=== PATIENT | male | born 1985 | race Hispanic/Latino ===

== ENCOUNTER 2018-08-14 08:19 | Emergency (ER) | payer BC, OTHER ==
[2018-08-14] MEDS ORDERED: TRAMADOL HCL 50 MG TAB ONE (08:50)
--- NOTE | 2018-08-14 08:58 | RAD REPORT ---
EXAM DESCRIPTION: RAD - Foot Right 3 View - 08/14/2018 8:53 am CLINICAL HISTORY: PAIN Trauma COMPARISON: No comparisons FINDINGS: Soft tissue swelling is seen affecting the great toe. No acute fracture or dislocation shayne ntified.
--- NOTE | 2018-08-14 09:23 | EDPHYS ---
Physician Documentation [facility] Name: Thai Lyle Jr Age: 33 yrs Sex: Male : 1985 Arrival Date: 08/14/2018 Time: 08:22 Bed 13 Private MD: None, None ED Physician Niko Hidalgo HPI: 08/14 09:14 This 33 yrs old Male presents to ER via Ambulatory with complaints of Right pm1 Great Toe Injury. 09:14 Onset: The symptoms/episode began/occurred this morning. The patient presents with pm1 pain. The complaints affect the right first toe. Context: The problem was sustained at home, resulted from the patient kicking, a wall, the patient can fully bear weight, the patient is able to ambulate, with mild difficulty. Modifying factors: The symptoms are alleviated by rest the symptoms are aggravated by weight bearing. Associated signs and symptoms: Pertinent negatives: calf tenderness, numbness, tingling. The patient has not experienced similar symptoms in the past. The patient has not recently seen a physician. Historical: - Allergies: 08:28 Prednisone; aa5 - PMHx: 08:28 Back pain; bulging disc; Kidney stones; aa5 - PSHx: 08:28 Vasectomy; aa5 - Immunization history:: Flu vaccine is not up to date. - Social history:: Smoking status: Patient uses tobacco products, smokes one-half pack cigarettes per day. - Ebola Screening: : No symptoms or risks identified at this time. ROS: 09:14 MS/extremity: Positive for pain, of the right first toe, Negative for deformity. pm1 09:14 Constitutional: Negative for fever, chills, and weight loss, Eyes: Negative for injury, pain, redness, and discharge, ENT: Negative for injury, pain, and discharge, Neck: Negative for injury, pain, and swelling, Cardiovascular: Negative for chest pain, palpitations, and edema, Respiratory: Negative for shortness of breath, cough, wheezing, and pleuritic chest pain, Abdomen/GI: Negative for abdominal pain, nausea, vomiting, diarrhea, and constipation, Back: Negative for injury and pain, Skin: Negative for injury, rash, and discoloration, Neuro: Negative for headache, weakness, numbness, tingling, and seizure. Exam: 09:14 Constitutional: This is a well developed, well nourished patient who is awake, alert, pm1 and in no acute distress. Head/Face: Normocephalic, atraumatic. Chest/axilla: Normal chest wall appearance and motion. Nontender with no deformity. No lesions are appreciated. Cardiovascular: Regular rate and rhythm with a normal S1 and S2. No gallops, murmurs, or rubs. Normal PMI, no JVD. No pulse deficits. Respiratory: Lungs have equal breath sounds bilaterally, clear to auscultation and percussion. No rales, rhonchi or wheezes noted. No increased work of breathing, no retractions or nasal flaring. Back: No spinal tenderness. No costovertebral tenderness. Full range of motion. Skin: Warm, dry with normal turgor. Normal color with no rashes, no lesions, and no evidence of cellulitis. 09:14 Musculoskeletal/extremity: Extremities: grossly normal except: noted in the right first toe: tenderness, trace swelling to right great toe, There is no evidence of decreased ROM, deformity, ecchymosis. Vital Signs: 08:28 BP 129 / 80; Pulse 65; Resp 18 S; Temp 97.1(TE); Pulse Ox 100% on R/A; Weight 83.91 kg aa5 (R); Height 5 ft. 9 in. (175.26 cm) (R); Pain 8/10; 08:28 Body Mass Index 27.32 (83.91 kg, 175.26 cm) aa5 MDM: 08:29 Patient medically screened. pm1 09:21 Data reviewed: vital signs. Data interpreted: Pulse oximetry: on room air is 100 %. pm1 Interpretation: normal. Counseling: I had a detailed discussion with the patient and/or guardian regarding: the historical points, exam findings, and any diagnostic results supporting the discharge/admit diagnosis, radiology results, the need for outpatient follow up, to return to the emergency department if symptoms worsen or persist or if there are any questions or concerns that arise at home. 08/14 08:29 Order name: Foot Right 3 View XRAY; Complete Time: 09:05 pm1 08/14 09:30 Order name: Post-op shoe; Complete Time: 09:52 pm1 Administered Medications: 08:37 Not Given (Physician Discretion): Paradise 10 mg-325 mg 1 tabs PO once pm1 08:51 Drug: traMADol 50 mg Route: PO; jl7 09:30 Follow up: Response: No adverse reaction; Pain is decreased jl7 Disposition: 14:14 Co-signature as Attending Physician, Niko Hidalgo MD I agree with the assessment and leoncio plan of care. Disposition: 08/14/18 09:23 Discharged to Home. Impression: Unspecified sprain of right great toe. - Condition is Stable. - Discharge Instructions: Foot Contusion, Foot Sprain. - Prescriptions for Tylenol- Codeine #3 300-30 mg Oral Tablet - take 2 tablets by ORAL route every 6 hours As needed; 20 tablet. Diclofenac Sodium 75 mg Oral Tablet Sustained Release - take 1 tablet by ORAL route 2 times per day; 30 tablet. - Medication Reconciliation Form, Thank You Letter, Prescription Opioid Use, Work release form form. - Follow up: Emergency Department; When: As needed; Reason: Worsening of condition. Follow up: Private Physician; When: 2 - 3 days; Reason: Recheck today's complaints, Continuance of care, Re-evaluation by your physician. Follow up: Mark Martinez DPM; When: 5 - 6 days; Reason: Recheck today's complaints, Continuance of care, Re-evaluation by your physician. - Problem is new. - Symptoms have improved. Signatures: Dispatcher [employer] EDMS Niko Hidalgo MD MD cha Calderon, Audri, RN RN aa5 Anjel Bentley, NORMA DISTRIBUTION TECH pm1 Augusto Bailey RN RN jl7 Corrections: (The following items were deleted from the chart) 09:56 09:23 08/14/2018 09:23 Discharged to Home. Impression: Unspecified sprain of right jl7 great toe. Condition is Stable. Forms are Medication Reconciliation Form, Thank You Letter, Antibiotic Education, Prescription Opioid Use. Follow up: Emergency Department; When: As needed; Reason: Worsening of condition. Follow up: Private Physician; When: 2 - 3 days; Reason: Recheck today's complaints, Continuance of care, Re-evaluation by your physician. Follow up: Dr. Mark Martinez; When: 5 - 6 days; Reason: Recheck today's complaints, Continuance of care, Re-evaluation by your physician. Problem is new. Symptoms have improved. pm1
--- NOTE | 2018-08-14 09:23 | ER ---
Nurse's Notes [facility] Name: Thai Lyle Jr Age: 33 yrs Sex: Male : 1985 Arrival Date: 08/14/2018 Time: 08:22 Bed 13 Private MD: None, None Diagnosis: Unspecified sprain of right great toe Presentation: 08/14 08:27 Presenting complaint: Patient states: "I kicked a wall this morning". Pt c/o pain to aa5 right great toe. Transition of care: patient was not received from another setting of care. Onset of symptoms was August 14, 2018. Risk Assessment: Do you want to hurt yourself or someone else? Patient reports no desire to harm self or others. Initial Sepsis Screen: Does the patient meet any 2 criteria? No. Patient's initial sepsis screen is negative. Does the patient have a suspected source of infection? No. Patient's initial sepsis screen is negative. Care prior to arrival: None. 08:27 Method Of Arrival: Ambulatory aa5 08:27 Acuity: MURIEL 4 aa5 Historical: - Allergies: 08:28 Prednisone; aa5 - PMHx: 08:28 Back pain; bulging disc; Kidney stones; aa5 - PSHx: 08:28 Vasectomy; aa5 - Immunization history:: Flu vaccine is not up to date. - Social history:: Smoking status: Patient uses tobacco products, smokes one-half pack cigarettes per day. - Ebola Screening: : No symptoms or risks identified at this time. Screenin:34 Abuse screen: Denies threats or abuse. Denies injuries from another. Nutritional jl7 screening: No deficits noted. Tuberculosis screening: No symptoms or risk factors identified. Fall Risk None identified. Assessment: 08:34 General: Appears in no apparent distress. uncomfortable, Behavior is calm, cooperative, jl7 appropriate for age. Pain: Complains of pain in right first toe Pain currently is 8 out of 10 on a pain scale. Is continuous. Neuro: Level of Consciousness is awake, alert, obeys commands, Oriented to person, place, time, situation. Cardiovascular: Patient's skin is warm and dry. Respiratory: Airway is patent Respiratory effort is even, unlabored, Respiratory pattern is regular, symmetrical. Derm: Skin is pink, warm \\T\\ dry. Musculoskeletal: Range of motion: intact in all extremities. 09:30 Reassessment: Patient appears in no apparent distress at this time. Patient and/or jl7 family updated on plan of care and expected duration. Pain level reassessed. Patient is alert, oriented x 3, equal unlabored respirations, skin warm/dry/pink. Vital Signs: 08:28 BP 129 / 80; Pulse 65; Resp 18 S; Temp 97.1(TE); Pulse Ox 100% on R/A; Weight 83.91 kg aa5 (R); Height 5 ft. 9 in. (175.26 cm) (R); Pain 8/10; 08:28 Body Mass Index 27.32 (83.91 kg, 175.26 cm) aa5 ED Course: 08:22 Patient arrived in ED. mr 08:22 None, None is Private Physician. mr 08:27 Triage completed. aa5 08:27 Arm band placed on. aa5 08:29 Anjel Bentley, NORMA is PHCP. pm1 08:29 Niko Hidalgo MD is Attending Physician. pm1 08:29 Augusto Bailey RN is Primary Nurse. jl7 08:34 Patient has correct armband on for positive identification. Bed in low position. Call jl7 light in reach. Side rails up X 1. Pulse ox on. NIBP on. 08:52 X-ray completed. Portable x-ray completed in exam room. Patient tolerated procedure jb2 well. 08:54 Foot Right 3 View XRAY In Process Unspecified. EDMS 09:22 Mark Martinez DPM is Referral Physician. pm1 09:54 No provider procedures requiring assistance completed. Patient did not have IV access jl7 during this emergency room visit. Administered Medications: 08:37 Not Given (Physician Discretion): Dameron 10 mg-325 mg 1 tabs PO once pm1 08:51 Drug: traMADol 50 mg Route: PO; jl7 09:30 Follow up: Response: No adverse reaction; Pain is decreased jl7 Outcome: 09:23 Discharge ordered by . pm1 09:54 Discharged to home ambulatory, with family. jl7 09:54 Condition: stable 09:54 Discharge instructions given to patient, family, Instructed on discharge instructions, follow up and referral plans. medication usage, Demonstrated understanding of instructions, follow-up care, medications, Prescriptions given X 2. 09:56 Patient left the ED. jl7 Signatures: Dispatcher [employer] ALEX SalasPepper mr CarinaThomas jb2 Lizbeth Alas, RN RN aa5 Anjel Bentley, NORMA [employer]ORER pm1 Augusto Bailey RN RN jl7
== END 2018-08-14 09:56 | disposition home or self-care (01) ==
LOC: ER 08:19
DX: S93.501A Unspecified sprain of right great toe, initial encounter (principal); W22.8XXA Striking against or struck by other objects, initial encounter; Y93.89 Activity, other specified; Y92.009 Unspecified place in unspecified non-institutional (private) residence as the place of occurrence of the external cause; Z88.8 Allergy status to other drugs, medicaments and biological substances; F17.210 Nicotine dependence, cigarettes, uncomplicated
CPT/HCPCS: 99284

== ENCOUNTER 2019-01-04 22:33 | Emergency (ER) | payer BC ==
[2019-01-04 23:26] LABS: Absolute Lymphocytes (CBC) 2.6 K/uL (0.7-4.9); Basophils % 2.2 % (0-1.3); Eosinophils % 5.3 % (0-4.4); Lymphocytes % 35.2 % (15.3-44.8); MPV 9.8 fL (7.6-11.3); Monocytes % 6.7 % (3.3-12.3); RBC Red Blood Cell Count 4.74 M/uL (4.33-5.43)
[2019-01-04 23:29] LABS: Protime INR 0.99
[2019-01-04] MEDS ORDERED: FAMOTIDINE 20 MG/2 ML VIAL IV ONE (23:35)
[2019-01-04] MEDS ORDERED: NA CHLORIDE 0.9% 1,000 ML ONE (23:35)
[2019-01-04 23:43] LABS: ALT/SGPT 20 U/L (12-78); AST/SGOT 11 U/L (15-37); Albumin 3.6 g/dL (3.4-5.0); Alkaline Phosphatase 101 U/L (45-117); BUN Blood Urea Nitrogen 14 mg/dL (7-18); Bicarbonate 29 mmol/L (21-32); Bilirubin Direct < 0.1 mg/dL (0-0.2); Bilirubin Total 0.2 mg/dL (0.2-1.0); Glucose Level 96 mg/dL (74-106); Lipase 400 U/L (73-393); Magnesium 2.2 mg/dL (1.8-2.4); NT PRO-BNP 113 pg/mL (<125); Potassium 3.7 mmol/L (3.5-5.1); Protein, Total 6.7 g/dL (6.4-8.2); Sodium Level 140 mmol/L (136-145); Troponin (Emerg Dept Use Only) < 0.02 ng/mL (0.0-0.045)
[2019-01-04 23:52] LABS: Urine Blood NEGATIVE (NEG); Urine Glucose NEGATIVE (NEG); Urine Protein TRACE (NEG); Urine Specific Gravity 1.025 (1.005-1.030)
[2019-01-05] MEDS ORDERED: NA CHLORIDE 0.9% 1,000 ML ONE (00:49)
--- NOTE | 2019-01-05 01:47 | ER ---
Nurse's Notes [facility] Name: Thai Lyle Jr Age: 33 yrs Sex: Male : 1985 Arrival Date: 01/04/2019 Time: 22:36 Bed 8 Private MD: Diagnosis: Chest pain, unspecified;Abdominal tenderness Presentation: 01/04 22:56 Presenting complaint: Patient states: LUQ pain for several days. Was seen at [facility] and aa1 was discharged and told to f/u with GI and has appt with Dr. Savage 01/18 but states the pain is not getting any better. Transition of care: patient was not received from another setting of care. Onset of symptoms was January 01, 2019. Risk Assessment: Do you want to hurt yourself or someone else? Patient reports no desire to harm self or others. Initial Sepsis Screen: Does the patient meet any 2 criteria? No. Patient's initial sepsis screen is negative. Does the patient have a suspected source of infection? Yes: Acute abdominal pain. Care prior to arrival: None. 22:56 Method Of Arrival: Ambulatory aa1 22:56 Acuity: MURIEL 3 aa1 Triage Assessment: 23:03 General: Appears in no apparent distress. comfortable, Behavior is calm, cooperative, aa1 appropriate for age. Historical: - Allergies: 23:03 Prednisone; aa1 - Home Meds: 23:03 None [Active]; aa1 - PMHx: 23:03 Back pain; bulging disc; Kidney stones; aa1 - PSHx: 23:03 Vasectomy; aa1 - Immunization history:: Flu vaccine is not up to date. - Social history:: Smoking status: Patient uses tobacco products, smokes one-half pack cigarettes per day. - Ebola Screening: : No symptoms or risks identified at this time. - Family history:: not pertinent. Screenin:08 Abuse screen: Denies threats or abuse. Nutritional screening: No deficits noted. tr5 Tuberculosis screening: No symptoms or risk factors identified. Fall Risk No fall in past 12 months (0 pts). No secondary diagnosis (0 pts). IV access (20 points). Ambulatory Aid- Gait- Normal/Bed Rest/Wheelchair (0 pts) Mental Status- Oriented to own ability (0 pts). Total Rangel Fall Scale indicates No Risk (0-24 pts). Assessment: 23:05 General: Appears uncomfortable, Behavior is calm, cooperative, appropriate for age. tr5 Pain: Complains of pain in abdomen Pain currently is 8 out of 10 on a pain scale. Quality of pain is described as aching, crampy, Pain began 2-3 days ago. Neuro: Level of Consciousness is awake, alert, obeys commands, Oriented to person, place, time, Superintendent Recreation are equal bilaterally Moves all extremities. Cardiovascular: Heart tones present Bruits absent Capillary refill < 3 seconds Pulses are all present. Edema is absent. Respiratory: Airway is patent Trachea midline Respiratory effort is even, unlabored, Respiratory pattern is regular, symmetrical, Breath sounds are clear bilaterally. GI: Bowel sounds present X 4 quads. Abdomen is tender to palpation in right lower quadrant and left lower quadrant Reports lower abdominal pain, bloody stool. : No signs and/or symptoms were reported regarding the genitourinary system. EENT: No signs and/or symptoms were reported regarding the EENT system. Derm: Skin is intact, Skin is dry. Musculoskeletal: Capillary refill < 3 seconds, Range of motion: intact in all extremities. 23:54 Reassessment: Patient appears in no apparent distress at this time. Patient and/or aa1 family updated on plan of care and expected duration. Pain level reassessed. Patient is alert, oriented x 3, equal unlabored respirations, skin warm/dry/pink. Awaiting lab results. 01/05 01:21 Reassessment: Patient appears in no apparent distress at this time. Patient and/or aa1 family updated on plan of care and expected duration. Pain level reassessed. Patient is alert, oriented x 3, equal unlabored respirations, skin warm/dry/pink. Awaiting provider reassessment. Vital Signs: 01/04 23:03 BP 112 / 77; Pulse 60; Resp 16; Temp 98.2; Pulse Ox 98% on R/A; Weight 79.38 kg; Height aa1 5 ft. 9 in. (175.26 cm); Pain 8/10; 23:54 BP 103 / 71; Pulse 60; Resp 16; Pulse Ox 97% on R/A; aa1 01/05 01:21 BP 97 / 65; Pulse 59; Resp 16; Pulse Ox 100% on R/A; aa1 07/18 23:03 Body Mass Index 25.84 (79.38 kg, 175.26 cm) aa1 ED Course: 01/04 22:36 Patient arrived in ED. do 22:38 Niko Hidalgo MD is Attending Physician. [facility] 23:03 Triage completed. aa1 23:03 Arm band placed on right wrist. aa1 23:05 Андрей Harmon, RN is Primary Nurse. tr5 23:08 Allergy band placed. Placed in gown. Bed in low position. Call light in reach. tr5 23:08 Inserted saline lock: 20 gauge in right antecubital area, using aseptic technique. tr5 23:35 X-ray completed. Portable x-ray completed in exam room. Patient tolerated procedure kw well. 23:40 XRAY Chest (1 view) In Process Unspecified. EDMS 01/05 01:49 CT Chest For PE Angio In Process Unspecified. EDMS 02:10 No provider procedures requiring assistance completed. IV discontinued. aa1 Administered Medications: 01/04 23:30 Drug: Pepcid 20 mg Route: IVP; Site: right antecubital; aa1 23:30 Drug: NS 0.9% 1000 ml Route: IV; Rate: 1 bolus; Site: right antecubital; aa1 01/05 00:42 Drug: NS 0.9% 1000 ml Route: IV; Rate: 1 bolus; Site: right antecubital; aa1 Outcome: 01:44 Discharge ordered by . [facility] 02:09 Condition: stable aa1 02:09 Discharge instructions given to patient, Instructed on discharge instructions, follow up and referral plans. medication usage, Prescriptions given X 3. 02:10 Discharged to home ambulatory. aa1 02:10 Patient left the ED. aa1 Signatures: Dispatcher [employer] EDMI Sonja Mitchell, RN RN aa1 Niko Hidalgo MD MD cha Whitley, Kimberlee kw Ogletree, Danielle do Rodriguez, Tommie, RN RN tr5
--- NOTE | 2019-01-05 01:49 | EDPHYS ---
Physician Documentation [facility] Name: Thai Lyle Jr Age: 33 yrs Sex: Male : 1985 Arrival Date: 01/04/2019 Time: 22:36 Bed 8 Private MD: LAINA Physician Niko Hidalgo HPI: 01/04 23:09 This 33 yrs old Male presents to ER via Ambulatory with complaints of leoncio Abdominal Pain. 23:09 The patient or guardian reports chest pain that is located primarily in the anterior leoncio chest wall, left breast. The patient presents with abdominal pain in the epigastric area, in the left upper quadrant. Onset: The symptoms/episode began/occurred 3 day(s) ago. The symptoms do not radiate. Associated signs and symptoms: none. Modifying factors: The symptoms are alleviated by nothing, the symptoms are aggravated by nothing. Historical: - Allergies: 23:03 Prednisone; aa1 - Home Meds: 23:03 None [Active]; aa1 - PMHx: 23:03 Back pain; bulging disc; Kidney stones; aa1 - PSHx: 23:03 Vasectomy; aa1 - Immunization history:: Flu vaccine is not up to date. - Social history:: Smoking status: Patient uses tobacco products, smokes one-half pack cigarettes per day. - Ebola Screening: : No symptoms or risks identified at this time. - Family history:: not pertinent. ROS: 23:09 Constitutional: Negative for fever, chills, and weight loss, Eyes: Negative for injury, leoncio pain, redness, and discharge, ENT: Negative for injury, pain, and discharge, Neck: Negative for injury, pain, and swelling, Cardiovascular: Negative for chest pain, palpitations, and edema, Respiratory: Negative for shortness of breath, cough, wheezing, and pleuritic chest pain, Back: Negative for injury and pain, : Negative for injury, bleeding, discharge, and swelling, MS/Extremity: Negative for injury and deformity, Skin: Negative for injury, rash, and discoloration, Neuro: Negative for headache, weakness, numbness, tingling, and seizure, Psych: Negative for depression, anxiety, suicide ideation, homicidal ideation, and hallucinations, Allergy/Immunology: Negative for hives, rash, and allergies, Endocrine: Negative for neck swelling, polydipsia, polyuria, polyphagia, and marked weight changes, Hematologic/Lymphatic: Negative for swollen nodes, abnormal bleeding, and unusual bruising. 23:09 Abdomen/GI: Positive for abdominal pain, of the left upper quadrant. Exam: 23:09 Constitutional: This is a well developed, well nourished patient who is awake, alert, leoncio and in no acute distress. Head/Face: Normocephalic, atraumatic. Eyes: Pupils equal round and reactive to light, extra-ocular motions intact. Lids and lashes normal. Conjunctiva and sclera are non-icteric and not injected. Cornea within normal limits. Periorbital areas with no swelling, redness, or edema. ENT: Nares patent. No nasal discharge, no septal abnormalities noted. Tympanic membranes are normal and external auditory canals are clear. Oropharynx with no redness, swelling, or masses, exudates, or evidence of obstruction, uvula midline. Mucous membranes moist. Neck: Trachea midline, no thyromegaly or masses palpated, and no cervical lymphadenopathy. Supple, full range of motion without nuchal rigidity, or vertebral point tenderness. No Meningismus. Chest/axilla: Normal chest wall appearance and motion. Nontender with no deformity. No lesions are appreciated. Cardiovascular: Regular rate and rhythm with a normal S1 and S2. No gallops, murmurs, or rubs. Normal PMI, no JVD. No pulse deficits. Respiratory: Lungs have equal breath sounds bilaterally, clear to auscultation and percussion. No rales, rhonchi or wheezes noted. No increased work of breathing, no retractions or nasal flaring. Abdomen/GI: Soft, non-tender, with normal bowel sounds. No distension or tympany. No guarding or rebound. No evidence of tenderness throughout. Back: No spinal tenderness. No costovertebral tenderness. Full range of motion. Male : Normal genitalia with no discharge or lesions. Skin: Warm, dry with normal turgor. Normal color with no rashes, no lesions, and no evidence of cellulitis. MS/ Extremity: Pulses equal, no cyanosis. Neurovascular intact. Full, normal range of motion. Neuro: Awake and alert, GCS 15, oriented to person, place, time, and situation. Cranial nerves II-XII grossly intact. Motor strength 5/5 in all extremities. Sensory grossly intact. Cerebellar exam normal. Normal gait. Psych: Awake, alert, with orientation to person, place and time. Behavior, mood, and affect are within normal limits. 23:09 Musculoskeletal/extremity: DVT Exam: No signs of deep vein thrombosis. no pain, no swelling, no tenderness, negative Homans' sign noted on exam, no appreciated bluish discoloration, no erythema, no increased warmth. Vital Signs: 23:03 BP 112 / 77; Pulse 60; Resp 16; Temp 98.2; Pulse Ox 98% on R/A; Weight 79.38 kg; Height aa1 5 ft. 9 in. (175.26 cm); Pain 8/10; 23:54 BP 103 / 71; Pulse 60; Resp 16; Pulse Ox 97% on R/A; aa1 01/05 01:21 BP 97 / 65; Pulse 59; Resp 16; Pulse Ox 100% on R/A; aa1 01/04 23:03 Body Mass Index 25.84 (79.38 kg, 175.26 cm) [facility] MDM: 01/04 22:50 Patient medically screened. [facility] 23:11 Data reviewed: vital signs, nurses notes, lab test result(s), EKG, radiologic studies, leoncio plain films. 01/04 23:09 Order name: Basic Metabolic Panel [facility] 01/04 23:09 Order name: CBC with Diff [facility] 01/04 23:09 Order name: LFT's [facility] 01/04 23:09 Order name: Magnesium [facility] 01/04 23:09 Order name: NT PRO-BNP [facility] 01/04 23:09 Order name: PT-INR; Complete Time: 00:11 [facility] 01/04 23:09 Order name: Troponin (emerg Dept Use Only); Complete Time: 00:11 [facility] 01/04 23:09 Order name: Lipase; Complete Time: 00:11 [facility] 01/04 23:09 Order name: D-Dimer; Complete Time: 00:11 [facility] 01/04 23:10 Order name: Basic Metabolic Panel; Complete Time: 00:11 [facility] 01/04 23:10 Order name: CBC with Automated Diff; Complete Time: 00:11 [facility] 01/04 23:10 Order name: Liver (Hepatic) Function; Complete Time: 00:11 [facility] 01/04 23:10 Order name: Magnesium; Complete Time: 00:11 [facility] 01/04 23:10 Order name: NT PRO-BNP; Complete Time: 00:11 [facility] 01/04 23:09 Order name: XRAY Chest (1 view) [facility] 01/04 23:09 Order name: EKG; Complete Time: 23:11 [facility] 01/04 23:09 Order name: Cardiac monitoring; Complete Time: 23:51 [facility] 01/04 23:09 Order name: EKG - Nurse/Tech; Complete Time: 23:51 [facility] 01/04 23:09 Order name: IV Saline Lock; Complete Time: 23:16 [facility] 01/04 23:09 Order name: Labs collected and sent; Complete Time: 23:16 [facility] 01/04 23:09 Order name: O2 Per Protocol; Complete Time: 23:16 [facility] 01/04 23:09 Order name: O2 Sat Monitoring; Complete Time: 23:16 [facility] 01/04 23:09 Order name: Urine Dipstick-Ancillary (obtain specimen); Complete Time: 23:38 [facility] 01/04 23:38 Order name: Urine Dipstick--Ancillary (enter results); Complete Time: 00:11 [facility] 01/05 00:12 Order name: CT Chest For PE Angio [facility] 01/05 00:14 Order name: Troponin (emerg Dept Use Only): 1245am; Complete Time: 01:47 [facility] Administered Medications: 23:30 Drug: Pepcid 20 mg Route: IVP; Site: right antecubital; [facility] 23:30 Drug: NS 0.9% 1000 ml Route: IV; Rate: 1 bolus; Site: right antecubital; aa1 01/05 00:42 Drug: NS 0.9% 1000 ml Route: IV; Rate: 1 bolus; Site: right antecubital; [facility] Disposition: 01/05/19 01:44 Discharged to Home. Impression: Chest pain, unspecified, Abdominal tenderness. - Condition is Stable. - Discharge Instructions: Abdominal Pain, Adult, Nonspecific Chest Pain, Abdominal Pain, Adult, Wsuj-[id number], Nonspecific Chest Pain, Oboc-so-Wgda, Aspirin and Your Heart. - Prescriptions for Bentyl 20 mg Oral Tablet - take 1 tablet by ORAL route every 6 hours As needed; 20 tablet. Pepcid 20 mg Oral Tablet - take 1 tablet by ORAL route every 12 hours for 10 days; 20 tablet. Tylenol- Codeine #3 300-30 mg Oral Tablet - take 2 tablets by ORAL route every 6 hours As needed; 20 tablet. - Medication Reconciliation Form, Thank You Letter, Antibiotic Education, Prescription Opioid Use form. - Follow up: Private Physician; When: 2 - 3 days; Reason: Recheck today's complaints, Continuance of care, Re-evaluation by your physician. - Problem is new. - Symptoms have improved. Signatures: Dispatcher [employer] EDMS Sonja Mitchell RN RN aa1 Niko Hidalgo MD MD cha Corrections: (The following items were deleted from the chart) 02:10 01:44 01/05/2019 01:44 Discharged to Home. Impression: Chest pain, unspecified; aa1 Abdominal tenderness. Condition is Stable. Discharge Instructions: Abdominal Pain, Adult, Nonspecific Chest Pain, Abdominal Pain, Adult, Dbkl-kd-Ldyz, Nonspecific Chest Pain, Hnbw-dx-Oixm, Aspirin and Your Heart. Prescriptions for Bentyl 20 mg Oral Tablet - take 1 tablet by ORAL route every 6 hours As needed; 20 tablet, Pepcid 20 mg Oral Tablet - take 1 tablet by ORAL route every 12 hours for 10 days; 20 tablet, Tylenol-Codeine #3 300-30 mg Oral Tablet - take 2 tablets by ORAL route every 6 hours As needed; 20 tablet. and Forms are Medication Reconciliation Form, Thank You Letter, Antibiotic Education, Prescription Opioid Use. Follow up: Private Physician; When: 2 - 3 days; Reason: Recheck today's complaints, Continuance of care, Re-evaluation by your physician. Problem is new. Symptoms have improved. leoncio
--- NOTE | 2019-01-05 07:57 | RAD REPORT ---
EXAM DESCRIPTION: Carl Single View01/04/2019 11:39 pm CLINICAL HISTORY: Cough COMPARISON: 2017 FINDINGS: The lungs appear clear of acute infiltrate. The heart is normal size IMPRESSION: No acute abnormalities displayed
--- NOTE | 2019-01-05 09:56 | RAD REPORT ---
EXAM DESCRIPTION: CT - Chest For Pe Angio - 01/05/2019 3:01 am CLINICAL HISTORY: The patient is 33 years old and is Male; CHEST PAIN TECHNIQUE: Axial computed tomographic angiography images of the chest with intravenous contrast usin g pulmonary embolism protocol. Sagittal and coronal reformatted images were created and reviewed. This CT exam was performed using one or more of the following dose reduction techniques: automated exposure control, adjustment of the mA and/or kV according to patient size, and/or use of iterative reconstruction technique. MIP reconstructed images were created and reviewed. COMPARISON: No relevant prior studies available. FINDINGS: PULMONARY ARTERIES: Unremarkable. No pulmonary embolism. AORTA: No acute findings. No thoracic aortic aneurysm. LUNGS: Unremarkable. No mass. No consolidation. PLEURAL SPACE: Unremarkable. No significant effusion. No pneumothorax. HEART: Unremarkable. No cardiomegaly. No significant pericardial effusion. No evidence of RV dysfunction. BONES/JOINTS: No acute fracture. No dislocation. SOFT TISSUES: Unremarkable. LYMPH NODES: Unremarkable. No enlarged lymph nodes. IMPRESSION: Normal chest CTA. No pulmonary embolism. Electronically signed by: Genevieve Lofton MD 01/05/2019 1:32 AM CDT Due to temporary technical issues with the PACS/Fluency reporting system, reports are being signed by the in house radiologist as a courtesy to ensure prompt reporting. The interpreting radiologist is f anthonyly responsible for the content of the report.
--- NOTE | 2019-01-05 15:38 | EKG ---
Test Date: 2019-01-04 Test Time: 23:37:07 Sap Bobj Developer: KARUNA MEASUREMENT RESULTS: Intervals: Rate: 45 DC: 126 QRSD: 104 QT: 444 QTc: 384 [place]: P: 68 DC: 126 QRS: 29 T: 47 INTERPRETIVE STATEMENTS: Sinus bradycardia ST elevation, probably due to early repolarization Borderline ECG Compared to ECG 06/20/2016 16:32:49 ST (T wave) deviation now present Early repolarization now present Sinus rhythm no longer present Electronically Signed On 01-05-19 15:35:31 CDT by Esequiel Mancuso
== END 2019-01-05 02:10 | disposition home or self-care (01) ==
LOC: ER 22:33
DX: R10.812 Left upper quadrant abdominal tenderness (principal); F17.210 Nicotine dependence, cigarettes, uncomplicated; Z88.8 Allergy status to other drugs, medicaments and biological substances
CPT/HCPCS: 36415; 71045; 71275; 80048; 80076; 81003; 83690; 83735; 83880; 84484; 85025; 85379; 85610; 93005; 96374; 99284; J7030; Q9967

== ENCOUNTER 2019-05-20 21:38 | Emergency (ER) | payer BC ==
[2019-05-20] MEDS ORDERED: AMOXICILLIN TRIHYDR 250 MG CAP ONE (22:07)
[2019-05-20] MEDS ORDERED: ONDANSETRON 4 MG (ODT) TAB ONE (22:08)
[2019-05-20] MEDS ORDERED: MORPHINE 4 MG/ML SYR ONE ×2 (22:08→22:50)
[2019-05-20 23:01] LABS: Absolute Lymphocytes (CBC) 2.6 K/uL (0.7-4.9); Basophils % 1.2 % (0-1.3); Hematocrit 44.2 % (39.6-49.0); Lymphocytes % 29.3 % (15.3-44.8); MPV 8.6 fL (7.6-11.3); RBC Red Blood Cell Count 4.96 M/uL (4.33-5.43)
[2019-05-20 23:14] LABS: BUN Blood Urea Nitrogen 13 mg/dL (7-18); Bicarbonate 30 mmol/L (21-32); Glucose Level 93 mg/dL (74-106); Potassium 3.9 mmol/L (3.5-5.1); Sodium Level 141 mmol/L (136-145)
--- NOTE | 2019-05-21 00:36 | EDPHYS ---
Physician Documentation [facility] Name: Thai Lyle Jr Age: 34 yrs Sex: Male : 1985 Arrival Date: 05/20/2019 Time: 21:39 Bed 7 Private MD: ED Physician Troy Retana HPI: 05/21 16:12 This 34 yrs old Male presents to ER via Ambulatory with complaints of Dental kdr Pain. 16:12 The patient presents with pain. The problem is located in the upper left first molar, kdr upper left second molar and upper left third molar. Onset: The symptoms/episode began/occurred suddenly, just prior to arrival. Duration: The symptoms are continuous, and are steadily getting worse. Modifying factors: The symptoms are alleviated by nothing, the symptoms are aggravated by nothing. Associated signs and symptoms: The patient has no apparent associated signs or symptoms. Severity of symptoms: At their worst the symptoms were severe, incapacitating, in the emergency department the symptoms are unchanged. The patient has experienced similar episodes in the past, a few times. The patient has not recently seen a physician. Historical: - Allergies: 05/20 21:50 Prednisone; ea - PMHx: 21:50 Kidney stones; bulging disc; Back pain; "stomach ulcers"; ea - PSHx: 21:50 Vasectomy; ea - Immunization history:: Adult Immunizations up to date. - Social history:: Smoking status: Patient uses tobacco products, smokes one-half pack cigarettes per day. - Ebola Screening: : No symptoms or risks identified at this time. ROS: 05/21 16:12 Constitutional: Negative for fever, chills, and weight loss, Eyes: Negative for injury, kdr pain, redness, and discharge, Neck: Negative for injury, pain, and swelling, Cardiovascular: Negative for chest pain, palpitations, and edema, Respiratory: Negative for shortness of breath, cough, wheezing, and pleuritic chest pain, Abdomen/GI: Negative for abdominal pain, nausea, vomiting, diarrhea, and constipation, Back: Negative for injury and pain. ENT: Positive for dental pain, of the upper left second molar and upper left third molar. Exam: 16:12 Constitutional: This is a well developed, well nourished patient who is awake, alert, kdr and in no acute distress. Head/Face: Normocephalic, atraumatic. Neck: Trachea midline, no thyromegaly or masses palpated, and no cervical lymphadenopathy. Supple, full range of motion without nuchal rigidity, or vertebral point tenderness. No Meningismus. Chest/axilla: Normal chest wall appearance and motion. Nontender with no deformity. No lesions are appreciated. 16:12 ENT: Mouth: Gums: reddened, swollen, on the upper left first molar, upper left second molar and upper left third molar, drooling, is not appreciated, Dental exam: dental caries, that is moderate, diffusely. Vital Signs: 05/20 21:49 BP 153 / 105; Pulse 65; Resp 18; Temp 97.8; Pulse Ox 100% on R/A; Weight 74.84 kg; ea Height 5 ft. 9 in. (175.26 cm); Pain 10/10; 23:40 BP 113 / 83; Pulse 61; Resp 18; Pulse Ox 96% ; ea 05/21 00:48 BP 97 / 62; Pulse 65; Resp 17; Temp 98.2; Pulse Ox 99% ; Pain 4/10; rr5 05/20 21:49 Body Mass Index 24.37 (74.84 kg, 175.26 cm) ea MDM: 00:34 Patient medically screened. kdr 16:12 Data reviewed: vital signs, nurses notes, lab test result(s). Counseling: I had a kdr detailed discussion with the patient and/or guardian regarding: the historical points, exam findings, and any diagnostic results supporting the discharge/admit diagnosis, lab results, radiology results, the need for outpatient follow up. 05/20 22:46 Order name: CBC with Diff; Complete Time: 23:46 kdr 05/20 22:46 Order name: Chem 7; Complete Time: 23:46 kdr 05/20 22:46 Order name: CT Facial Bones W/ Con \\T\\ Mpr kdr Administered Medications: 05/20 22:12 Drug: morphine 4 mg {Note: rass 0.} Route: IM; Site: right gluteus; rr5 23:31 Follow up: Response: No adverse reaction ea 22:14 Drug: Zofran 4 mg Route: PO; rr5 23:31 Follow up: Response: No adverse reaction ea 22:14 Drug: Amoxicillin 500 mg Route: PO; rr5 23:31 Follow up: Response: No adverse reaction ea 22:56 Drug: morphine 4 mg Route: IVP; Site: right antecubital; ea 23:22 Follow up: Response: No adverse reaction; Pain is decreased ea Disposition: 05/21/19 00:34 Discharged to Home. Impression: Dental pain. - Condition is Stable. - Discharge Instructions: Dental Pain, Laen-sx-Ryap. - Prescriptions for Amoxicillin 500 mg Oral Capsule - take 1 capsule by ORAL route every 8 hours for 10 days; 30 tablet. Flagyl 500 mg Oral Tablet - take 1 tablet by ORAL route every 6 hours for 10 days; 40 tablet. Tramadol 50 mg Oral Tablet - take 1 tablet by ORAL route every 8 hours as needed; 12 tablet. - Medication Reconciliation Form, Thank You Letter, Antibiotic Education, Prescription Opioid Use form. - Follow up: Private Physician; When: 2 - 3 days; Reason: If symptoms return, Further diagnostic work-up, Recheck today's complaints, Continuance of care, Re-evaluation by your physician. - Problem is new. - Symptoms have improved. Signatures: Dispatcher [employer] EDMS Troy Retana MD MD [facility] Taylor Garcia RN RN Vinay Zheng RN RN rr5 Corrections: (The following items were deleted from the chart) 05/21 00:50 00:34 05/21/2019 00:34 Discharged to Home. Impression: Dental pain. Condition is rr5 Stable. Forms are Medication Reconciliation Form, Thank You Letter, Antibiotic Education, Prescription Opioid Use. Follow up: Private Physician; When: 2 - 3 days; Reason: If symptoms return, Further diagnostic work-up, Recheck today's complaints, Continuance of care, Re-evaluation by your physician. Problem is new. Symptoms have improved. kdr
--- NOTE | 2019-05-21 00:36 | ER ---
Nurse's Notes [facility] Name: Thai Lyle Jr Age: 34 yrs Sex: Male : 1985 Arrival Date: 05/20/2019 Time: 21:39 Bed 7 Private MD: Diagnosis: Dental pain Presentation: 05/20 21:46 Presenting complaint: Patient states: Reports left side tooth pain that started about ea thirty minutes ago. Pt significant other states "he has bad teeth and has had this issue before but never this severe". Transition of care: patient was not received from another setting of care. Onset of symptoms was May 20, 2019. Risk Assessment: Do you want to hurt yourself or someone else? Patient reports no desire to harm self or others. Initial Sepsis Screen: Does the patient meet any 2 criteria? No. Patient's initial sepsis screen is negative. Does the patient have a suspected source of infection? Yes: Other: dental carries. Care prior to arrival: None. 21:46 Method Of Arrival: Ambulatory ea 21:46 Acuity: MURIEL 4 ea Historical: - Allergies: 21:50 Prednisone; ea - PMHx: 21:50 Kidney stones; bulging disc; Back pain; "stomach ulcers"; ea - PSHx: 21:50 Vasectomy; ea - Immunization history:: Adult Immunizations up to date. - Social history:: Smoking status: Patient uses tobacco products, smokes one-half pack cigarettes per day. - Ebola Screening: : No symptoms or risks identified at this time. Screenin:48 Abuse screen: Denies threats or abuse. Nutritional screening: No deficits noted. ea Tuberculosis screening: No symptoms or risk factors identified. Fall Risk None identified. Assessment: 21:51 General: Appears uncomfortable, Behavior is restless. Pain: Complains of pain in lower ea left first molar and lower left second bicuspid Pain currently is 10 out of 10 on a pain scale. Neuro: Level of Consciousness is awake, alert, obeys commands, Oriented to person, place, time, situation. Cardiovascular: Patient's skin is warm and dry. Respiratory: Airway is patent Respiratory effort is even, unlabored, Respiratory pattern is regular, symmetrical. EENT: Parent/caregiver reports the patient having pain in left jaw since 30 minutes ago Pain is 10 out of 10 on a pain scale. Derm: Skin is pink, warm \\T\\ dry. 22:50 Reassessment: Patient and/or family updated on plan of care and expected duration. Pain ea level reassessed. Pt reports pain, provider notified, ,medication order obtained, medication administered, pt tolerated well. 23:41 Reassessment: Patient and/or family updated on plan of care and expected duration. Pain ea level reassessed. Patient is alert, oriented x 3, equal unlabored respirations, skin warm/dry/pink. Returned form CT, pt reports pain decreased a little. 05/21 00:01 Reassessment: Patient and/or family updated on plan of care and expected duration. Pain ea level reassessed. Patient is alert, oriented x 3, equal unlabored respirations, skin warm/dry/pink. Awaiting on CT results. 00:49 Reassessment: Patient appears in no apparent distress at this time. Patient is alert, rr5 oriented x 3, equal unlabored respirations, skin warm/dry/pink. discharge instruction given and explained without complaints made, verbalized understading. Patient states feeling better. Patient states symptoms have improved. Vital Signs: 05/20 21:49 BP 153 / 105; Pulse 65; Resp 18; Temp 97.8; Pulse Ox 100% on R/A; Weight 74.84 kg; ea Height 5 ft. 9 in. (175.26 cm); Pain 10/10; 23:40 BP 113 / 83; Pulse 61; Resp 18; Pulse Ox 96% ; ea 05/21 00:48 BP 97 / 62; Pulse 65; Resp 17; Temp 98.2; Pulse Ox 99% ; Pain 4/10; rr5 05/20 21:49 Body Mass Index 24.37 (74.84 kg, 175.26 cm) ea ED Course: 05/20 21:39 Patient arrived in ED. ds1 21:40 Troy Retana MD is Attending Physician. kdr 21:48 Triage completed. ea 21:48 Patient has correct armband on for positive identification. Bed in low position. Call ea light in reach. Side rails up X2. 21:48 Arm band placed on right wrist. Patient placed in an exam room, on a stretcher, on ea pulse oximetry. 21:51 Taylor Garcia RN is Primary Nurse. ea 22:50 Inserted saline lock: 20 gauge in right antecubital area, using aseptic technique. ea Blood collected. 23:44 CT Facial Bones W/ Con \\T\\ Mpr In Process Unspecified. EDMS 05/21 00:49 No provider procedures requiring assistance completed. IV discontinued, intact, rr5 bleeding controlled, No redness/swelling at site. Pressure dressing applied. Administered Medications: 05/20 22:12 Drug: morphine 4 mg {Note: rass 0.} Route: IM; Site: right gluteus; rr5 23:31 Follow up: Response: No adverse reaction ea 22:14 Drug: Zofran 4 mg Route: PO; rr5 23:31 Follow up: Response: No adverse reaction ea 22:14 Drug: Amoxicillin 500 mg Route: PO; rr5 23:31 Follow up: Response: No adverse reaction ea 22:56 Drug: morphine 4 mg Route: IVP; Site: right antecubital; ea 23:22 Follow up: Response: No adverse reaction; Pain is decreased ea Outcome: 05/21 00:34 Discharge ordered by . kdr 00:49 Discharged to home ambulatory, with family. rr5 00:49 Condition: stable 00:49 Discharge instructions given to patient, family, Instructed on discharge instructions, follow up and referral plans. medication usage, Demonstrated understanding of instructions, follow-up care, medications, Prescriptions given X 3. 00:50 Patient left the ED. rr5 Signatures: Dispatcher [employer] EDMS Troy Retana MD MD kdr Sanford, Demi ds1 Taylor Garcia RN RN ea Roque, Raymond, RN RN rr5 Corrections: (The following items were deleted from the chart) 05/20 22:15 21:12 morphine 4 mg IM in right gluteus rr5 rr5
[2019-05-21 01:25] VITALS: BP 97/62; TEMP 98.2; O2SAT 99
--- NOTE | 2019-05-22 11:28 | RAD REPORT ---
EXAM DESCRIPTION: CT - Facial Bones W Con Mpr - 05/21/2019 2:41 am CLINICAL HISTORY: Left mandibular pain COMPARISON: None. TECHNIQUE: CT MAXILLOFACIAL WITH IV CONTRAST on 05/20/2019 10:46 PM POWER PRESS SUPERVISOR This exam was performed according to our departmental dose-optimization program, which includes autom ated exposure control, adjustment of the mA and/or kV according to patient size and/or use of iterati ve reconstruction technique. FINDINGS: There is no acute fracture. There is minimal thickening of the left maxillary sinus. There are mucous retention cysts in the right maxillary sinus. Orbits and globes are unremarkable. Mastoid air cells are clear. Temporomandibular joints are intact. There are no significant soft tissue abnor malities. IMPRESSION: No significant acute abnormalities. Electronically signed by: Saad Fields MD 05/20/2019 11:59 PM POWER PRESS SUPERVISOR Due to temporary technical issues with the PACS/Fluency reporting system, reports are being signed by the in house radiologist as a courtesy to ensure prompt reporting. The interpreting radiologist is f ully responsible for the content of the report.
== END 2019-05-21 00:50 | disposition home or self-care (01) ==
LOC: ER 21:38
DX: K08.89 Other specified disorders of teeth and supporting structures (principal); Z72.0 Tobacco use; Z88.8 Allergy status to other drugs, medicaments and biological substances
CPT/HCPCS: 85025; 80048; 36415; 70487; 76377; 96372; 96374; 99284; Q9967

== ENCOUNTER 2019-09-27 | Emergency (ER) | payer BC | END 2019-09-27 08:59 | disposition home or self-care (01) | CPT/HCPCS: 96361; 85025; 80048; 36415; 80076; 83690; 74177; 96374; 99284; Q9967; C9113; J7030; 81003; 81015 ==

== ENCOUNTER 2021-11-21 16:49 | Emergency (ER) | payer BC ==
--- OUTSIDE RECORDS SUMMARY | 2021-11-21 16:53 | XMS REPORT | Continuity of Care Document ---
:1985 Author Organization [facility] t Address [address] [place] [address] Care Team Providers Name Role Phone PCP, DOES NOT HAVE A Primary Care Physician Unavailable TACO Attending Clinician Unavailable Taco ASHLEY Attending Clinician Unknown Attending Clinician Unavailable MICHELLE Attending Clinician Unavailable Only, Db Test Attending Clinician Unavailable Michelle [employer] Attending Clinician Karlos DANIEL Attending Clinician Unavailable Jonathan CANSECO Attending Clinician JONATHAN Attending Clinician Unavailable Kenn DANIEL, L Attending Clinician Unavailable Kalia DANIEL, D Attending Clinician Unavailable Brittany CANSECO, J Attending Clinician Pita SOTO Attending Clinician Unavailable Payal DANIEL, T Attending Clinician Unavailable UNKNOWN Attending Clinician Unavailable Doctor Unassigned, Name Attending Clinician Unavailable Lab, Fam Pob I Attending Clinician Unavailable Karli [employer] Attending Clinician Payers Payer Name Policy Type Policy Number Effective Date Expiration Date S [facility] [place] [id number] 2018 00:00:00 Problems Condition Condition Condition Status Onset Resolution Last Treating Co mments Source Name Details Category Date Date Treatment Clinician Date DDD DDD Disease Active [facility] (degenerat (degenerat 2-14 it y of davie disc davie disc 00:00: [place] disease), disease), 00 Medi julian lumbar lumbar Branch Gastroesop Gastroesop Disease Active 2015-06 U nivers hageal hageal 1-14 ity of reflux reflux 00:00: [place] disease disease 00 Medical without without Branch esophagiti esophagiti s s Midline Midline Disease Active Univers low back low back 9-16 ity of pain pain 00:00: [place] without without 00 Medical sciatica sciatica Branch FH: FH: Disease Active Univers arthritis arthritis 9-16 ity of 00:00: [place] 00 Medical Branch Nicotine Nicotine Disease Active Unive rs addiction addiction 9-16 ity of 00:00: [place] 00 Medical Branch Allergies, Adverse Reactions, Alerts Allergy Allergy Status Severity Reaction(s) Onset Inactive Treating Comm ents Source Name Type Date Date Clinician PREDNISO DRUG Active High Anaphylaxis 2015-06 Uni vers NE INGREDI 0-18 ity of 00:00: [place] 00 Medical Branch Predniso Drug Active Anaphylaxis 2015-06 Uni vers ne Intolera 0-18 ity of nce 00:00: [place] 00 Medical Branch Social History Social Habit Start Date Stop Date Quantity Comments Source Exposure to Not sure [facility] SARS-CoV-2 (event) Medica l [place] Alcohol intake 2021-06-12 2021-06-12 0 /d [facility] 00:00:00 00:00:00 [facility] Tobacco use and 2016-02-26 2016-02-26 Never used [facility] exposure 00:00:00 00:00:00 [facility] Cigarettes smoked 2016-02-26 2016-02-26 [facility] current (pack per 00:00:00 00:00:00 Medical Branch day) - Reported Sex [birth year] [facility] 00:00:00 00:00:00 [facility] Smoking Status Start Date Stop Date Source Current every day smoker 2016[facility]02[facility]26 [facility] [place] Medic[facility] Ordered Filled Start Stop Current Ordering Indication Dosage Frequency Signature Comments Components Source Medication Medication Date Date Medication? Clinician (SIG) Name Name erythromaameci Yes .5[in_u Place 0.5 Univers n 5 mg/gram 3-29 s] Inches in ity of (0.5 %) 00:00: left eye [place] ophthalmic 00 at Medical ointment bedtime. Branch erythromyci Yes .5[in_u Place 0.5 Univers n 5 mg/gram 3-29 s] Inches in ity of (0.5 %) 00:00: left eye [place] ophthalmic 00 at Medical ointment bedtime. Branch erythromyci 2018-0 Yes .5[in_u Place 0.5 Univers n 5 mg/gram 3-29 s] Inches in ity of (0.5 %) 00:00: left eye [place] ophthalmic 00 at Medical ointment bedtime. Branch erythromyci 2018-0 Yes .5[in_u Place 0.5 Univers n 5 mg/gram 3-29 s] Inches in ity of (0.5 %) 00:00: left eye [place] ophthalmic 00 at Medical ointment bedtime. Branch erythromyci 2018-0 Yes .5[in_u Place 0.5 Univers n 5 mg/gram 3-29 s] Inches in ity of (0.5 %) 00:00: left eye [place] ophthalmic 00 at Medical ointment bedtime. Branch erythromyci 2018-0 Yes .5[in_u Place 0.5 Univers n 5 mg/gram 3-29 s] Inches in ity of (0.5 %) 00:00: left eye [place] ophthalmic 00 at Medical ointment bedtime. Branch erythromyci 2018-0 Yes .5[in_u Place 0.5 Univers n 5 mg/gram 3-29 s] Inches in ity of (0.5 %) 00:00: left eye [place] ophthalmic 00 at Medical ointment bedtime. Branch erythromyci 2018-0 Yes .5[in_u Place 0.5 Univers n 5 mg/gram 3-29 s] Inches in ity of (0.5 %) 00:00: left eye [place] ophthalmic 00 at Medical ointment bedtime. Branch erythromyci 2018-0 Yes .5[in_u Place 0.5 Univers n 5 mg/gram 3-29 s] Inches in ity of (0.5 %) 00:00: left eye [place] ophthalmic 00 at Medical ointment bedtime. Branch erythromyci 2018-0 Yes .5[in_u Place 0.5 Univers n 5 mg/gram 3-29 s] Inches in ity of (0.5 %) 00:00: left eye [place] ophthalmic 00 at Medical ointment bedtime. Branch erythromyci 2017-0 Yes .5[in_u Place 0.5 Univers n 5 mg/gram 3-29 s] Inches in ity of (0.5 %) 00:00: left eye [place] ophthalmic 00 at Medical ointment bedtime. Branch erythromyci 2017-0 Yes .5[in_u Place 0.5 Univers n 5 mg/gram 3-29 s] Inches in ity of (0.5 %) 00:00: left eye [place] ophthalmic 00 at Medical ointment bedtime. Branch erythromyci 2017-0 Yes .5[in_u Place 0.5 Univers n 5 mg/gram 3-29 s] Inches in ity of (0.5 %) 00:00: left eye [place] ophthalmic 00 at Medical ointment bedtime. Branch erythromyci 0 Yes .5[in_u Place 0.5 Univers n 5 mg/gram 3-29 s] Inches in ity of (0.5 %) 00:00: left eye [place] ophthalmic 00 at Medical ointment bedtime. Branch erythromyci 0 Yes .5[in_u Place 0.5 Univers n 5 mg/gram 3-29 s] Inches in ity of (0.5 %) 00:00: left eye [place] ophthalmic 00 at Medical ointment bedtime. Branch erythromyci 0 Yes .5[in_u Place 0.5 Univers n 5 mg/gram 3-29 s] Inches in ity of (0.5 %) 00:00: left eye [place] ophthalmic 00 at Medical ointment bedtime. [place] acetaminoph 2016-06 Yes 1{tbl} Take 1 [facility] [place] en-codeine 1-17 tablet by ity of 300-30 mg 00:00: mouth [place] tablet 00 every 6 Medical (six) Branch hours as needed for Pain (scale 4-6) for up to 20 doses. acetaminoph 2016-06 Yes 1{tbl} Take 1 [facility] [place] en-codeine 1-17 tablet by ity of 300-30 mg 00:00: mouth [place] tablet 00 every 6 Medical (six) Branch hours as needed for Pain (scale 4-6) for up to 20 doses. acetaminoph 2016-06 Yes 1{tbl} Take 1 [facility] [place] en-codeine 1-17 tablet by ity of 300-30 mg 00:00: mouth [place] tablet 00 every 6 Medical (six) Branch hours as needed for Pain (scale 4-6) for up to 20 doses. acetaminoph 2016-06 Yes 1{tbl} Take 1 [facility] [place] en-codeine 1-17 tablet by ity of 300-30 mg 00:00: mouth [place] tablet 00 every 6 Medical (six) Branch hours as needed for Pain (scale 4-6) for up to 20 doses. acetaminoph 2016-06 Yes 1{tbl} Take 1 [facility] [place] en-codeine 1-17 tablet by ity of 300-30 mg 00:00: mouth [place] tablet 00 every 6 Medical (six) Branch hours as needed for Pain (scale 4-6) for up to 20 doses. acetaminoph 2016-06 Yes 1{tbl} Take 1 [facility] [place] en-codeine 1-17 tablet by ity of 300-30 mg 00:00: mouth [place] tablet 00 every 6 Medical (six) Branch hours as needed for Pain (scale 4-6) for up to 20 doses. acetaminoph 2016-06 Yes 1{tbl} Take 1 [facility] [place] en-codeine 1-17 tablet by ity of 300-30 mg 00:00: mouth [place] tablet 00 every 6 Medical (six) Branch hours as needed for Pain (scale 4-6) for up to 20 doses. acetaminoph 2016-06 Yes 1{tbl} Take 1 [facility] [place] en-codeine 1-17 tablet by ity of 300-30 mg 00:00: mouth [place] tablet 00 every 6 Medical (six) Branch hours as needed for Pain (scale 4-6) for up to 20 doses. acetaminoph 2016-06 Yes 1{tbl} Take 1 [facility] [place] en-codeine 1-17 tablet by ity of 300-30 mg 00:00: mouth [place] tablet 00 every 6 Medical (six) Branch hours as needed for Pain (scale 4-6) for up to 20 doses. acetaminoph 2016-06 Yes 1{tbl} Take 1 [facility] [place] en-codeine 1-17 tablet by ity of 300-30 mg 00:00: mouth [place] tablet 00 every 6 Medical (six) Branch hours as needed for Pain (scale 4-6) for up to 20 doses. acetaminoph 2016-06 Yes 1{tbl} Take 1 [facility] [place] en-codeine 1-17 tablet by ity of 300-30 mg 00:00: mouth [place] tablet 00 every 6 Medical (six) Branch hours as needed for Pain (scale 4-6) for up to 20 doses. acetaminoph 2016-06 Yes 1{tbl} Take 1 [facility] [place] en-codeine 1-17 tablet by ity of 300-30 mg 00:00: mouth [place] tablet 00 every 6 Medical (six) Branch hours as needed for Pain (scale 4-6) for up to 20 doses. acetaminoph 2016-06 Yes 1{tbl} Take 1 [facility] [place] en-codeine 1-17 tablet by ity of 300-30 mg 00:00: mouth [place] tablet 00 every 6 Medical (six) Branch hours as needed for Pain (scale 4-6) for up to 20 doses. acetaminoph 2016-06 Yes 1{tbl} Take 1 [facility] [place] en-codeine 1-17 tablet by ity of 300-30 mg 00:00: mouth [place] tablet 00 every 6 Medical (six) Branch hours as needed for Pain (scale 4-6) for up to 20 doses. acetaminoph 2016-06 Yes 1{tbl} Take 1 [facility] [place] en-codeine 1-17 tablet by ity of 300-30 mg 00:00: mouth [place] tablet 00 every 6 Medical (six) Branch hours as needed for Pain (scale 4-6) for up to 20 doses. acetaminoph 2016-06 Yes 1{tbl} Take 1 [facility] [place] en-codeine 1-17 tablet by ity of 300-30 mg 00:00: mouth [place] tablet 00 every 6 Medical (six) Branch hours as needed for Pain (scale 4-6) for up to 20 doses. doxycycline 2017-0 Yes 100mg Take 1 Uni vers 100 mg 6-12 capsule by ity of capsule 00:00: mouth 2 [place] 00 (two) Medical times Branch daily. TYLENOL-COD 2017-0 Yes 2{tbl} Take 2 [facility] [place] EINE #3 6-12 tablets by ity of 300-30 mg 00:00: mouth [place] tablet 00 every 6 Medical (six) Branch hours as needed for Pain (scale 4-6). DOXYCYCLINE 2017-0 Yes 100mg Take 1 Uni vers 100 mg 6-12 capsule by ity of capsule 00:00: mouth 2 [place] 00 (two) Medical times Branch daily. doxycycline 2017-0 Yes 100mg Take 1 Uni vers 100 mg 6-12 capsule by ity of capsule 00:00: mouth 2 [place] 00 (two) Medical times Branch daily. TYLENOL-COD 2017-0 Yes 2{tbl} Take 2 [facility] [place] EINE #3 6-12 tablets by ity of 300-30 mg 00:00: mouth [place] tablet 00 every 6 Medical (six) Branch hours as needed for Pain (scale 4-6). DOXYCYCLINE 2017-0 Yes 100mg Take 1 Uni vers 100 mg 6-12 capsule by ity of capsule 00:00: mouth 2 [place] 00 (two) Medical times Branch daily. doxycycline 2017-0 Yes 100mg Take 1 Uni vers 100 mg 6-12 capsule by ity of capsule 00:00: mouth 2 [place] (two) Medical times Branch daily. TYLENOL-COD 2017-0 Yes 2{tbl} Take 2 [facility] [place] EINE #3 6-12 tablets by ity of 300-30 mg 00:00: mouth [place] tablet 00 every 6 Medical (six) Branch hours as needed for Pain (scale 4-6). DOXYCYCLINE 2017-0 Yes 100mg Take 1 Uni vers 100 mg 6-12 capsule by ity of capsule 00:00: mouth 2 [place] (two) Medical times Branch daily. doxycycline 2017-0 Yes 100mg Take 1 Uni vers 100 mg 6-12 capsule by ity of capsule 00:00: mouth 2 [place] 00 (two) Medical times Branch daily. TYLENOL-COD 2017-0 Yes 2{tbl} Take 2 [facility] [place] EINE #3 6-12 tablets by ity of 300-30 mg 00:00: mouth [place] tablet 00 every 6 Medical (six) Branch hours as needed for Pain (scale 4-6). DOXYCYCLINE 2017-0 Yes 100mg Take 1 Uni vers 100 mg 6-12 capsule by ity of capsule 00:00: mouth 2 [place] 00 (two) Medical times Branch daily. doxycycline 2017-0 Yes 100mg Take 1 Uni vers 100 mg 6-12 capsule by ity of capsule 00:00: mouth 2 [place] 00 (two) Medical times Branch daily. TYLENOL-COD 2017-0 Yes 2{tbl} Take 2 [facility] [place] EINE #3 6-12 tablets by ity of 300-30 mg 00:00: mouth [place] tablet 00 every 6 Medical (six) Branch hours as needed for Pain (scale 4-6). DOXYCYCLINE 2017-0 Yes 100mg Take 1 Uni vers 100 mg 6-12 capsule by ity of capsule 00:00: mouth 2 [place] (two) Medical times Branch daily. doxycycline 2017-0 Yes 100mg Take 1 Uni vers 100 mg 6-12 capsule by ity of capsule 00:00: mouth 2 [place] (two) Medical times Branch daily. TYLENOL-COD 2017-0 Yes 2{tbl} Take 2 [facility] [place] EINE #3 6-12 tablets by ity of 300-30 mg 00:00: mouth [place] tablet 00 every 6 Medical (six) Branch hours as needed for Pain (scale 4-6). DOXYCYCLINE 2017-0 Yes 100mg Take 1 Uni vers 100 mg 6-12 capsule by ity of capsule 00:00: mouth 2 [place] (two) Medical times Branch daily. doxycycline 2017-0 Yes 100mg Take 1 Uni vers 100 mg 6-12 capsule by ity of capsule 00:00: mouth 2 [place] (two) Medical times Branch daily. TYLENOL-COD 2017-0 Yes 2{tbl} Take 2 [facility] [place] EINE #3 6-12 tablets by ity of 300-30 mg 00:00: mouth [place] tablet 00 every 6 Medical (six) Branch hours as needed for Pain (scale 4-6). DOXYCYCLINE 2017-0 Yes 100mg Take 1 Uni vers 100 mg 6-12 capsule by ity of capsule 00:00: mouth 2 (two) Medical times Branch daily. doxycycline 2017-0 Yes 100mg Take 1 Uni vers 100 mg 6-12 capsule by ity of capsule 00:00: mouth 2 [place] 00 (two) Medical times Branch daily. doxycycline 2017-0 Yes 100mg Take 1 Uni vers 100 mg 6-12 capsule by ity of capsule 00:00: mouth 2 [place] 00 (two) Medical times Branch daily. TYLENOL-COD 2017-0 Yes 2{tbl} Take 2 [facility] [place] EINE #3 6-12 tablets by ity of 300-30 mg 00:00: mouth [place] tablet 00 every 6 Medical (six) Branch hours as needed for Pain (scale 4-6). DOXYCYCLINE 2017-0 Yes 100mg Take 1 Uni vers 100 mg 6-12 capsule by ity of capsule 00:00: mouth 2 [place] 00 (two) Medical times Branch daily. TYLENOL-COD 2017-0 Yes 2{tbl} Take 2 [facility] [place] EINE #3 6-12 tablets by ity of 300-30 mg 00:00: mouth [place] tablet 00 every 6 Medical (six) Branch hours as needed for Pain (scale 4-6). doxycycline 2017-0 Yes 100mg Take 1 Uni vers 100 mg 6-12 capsule by ity of capsule 00:00: mouth 2 [place] 00 (two) Medical times Branch daily. TYLENOL-COD 2017-0 Yes 2{tbl} Take 2 [facility] [place] EINE #3 6-12 tablets by ity of 300-30 mg 00:00: mouth [place] tablet 00 every 6 Medical (six) Branch hours as needed for Pain (scale 4-6). DOXYCYCLINE 2017-0 Yes 100mg Take 1 Uni vers 100 mg 6-12 capsule by ity of capsule 00:00: mouth 2 [place] 00 (two) Medical times Branch daily. DOXYCYCLINE 2017-0 Yes 100mg Take 1 Uni vers 100 mg 6-12 capsule by ity of capsule 00:00: mouth 2 [place] 00 (two) Medical times Branch daily. doxycycline 2017-0 Yes 100mg Take 1 Uni vers 100 mg 6-12 capsule by ity of capsule 00:00: mouth 2 [place] 00 (two) Medical times Branch daily. TYLENOL-COD 2017-0 Yes 2{tbl} Take 2 [facility] [place] EINE #3 6-12 tablets by ity of 300-30 mg 00:00: mouth [place] tablet 00 every 6 Medical (six) Branch hours as needed for Pain (scale 4-6). DOXYCYCLINE 2017-0 Yes 100mg Take 1 Uni vers 100 mg 6-12 capsule by ity of capsule 00:00: mouth 2 [place] 00 (two) Medical times Branch daily. doxycycline 2017-0 Yes 100mg Take 1 Uni vers 100 mg 6-12 capsule by ity of capsule 00:00: mouth 2 [place] 00 (two) Medical times Branch daily. TYLENOL-COD 2017-0 Yes 2{tbl} Take 2 [facility] [place] EINE #3 6-12 tablets by ity of 300-30 mg 00:00: mouth [place] tablet 00 every 6 Medical (six) Branch hours as needed for Pain (scale 4-6). DOXYCYCLINE 2017-0 Yes 100mg Take 1 Uni vers 100 mg 6-12 capsule by ity of capsule 00:00: mouth 2 [place] 00 (two) Medical times Branch daily. doxycycline 2017-0 Yes 100mg Take 1 Uni vers 100 mg 6-12 capsule by ity of capsule 00:00: mouth 2 [place] 00 (two) Medical times Branch daily. TYLENOL-COD 2017-0 Yes 2{tbl} Take 2 [facility] [place] EINE #3 6-12 tablets by ity of 300-30 mg 00:00: mouth [place] tablet 00 every 6 Medical (six) Branch hours as needed for Pain (scale 4-6). DOXYCYCLINE 2017-0 Yes 100mg Take 1 Uni vers 100 mg 6-12 capsule by ity of capsule 00:00: mouth 2 [place] 00 (two) Medical times Branch daily. doxycycline 2017-0 Yes 100mg Take 1 Uni vers 100 mg 6-12 capsule by ity of capsule 00:00: mouth 2 [place] 00 (two) Medical times Branch daily. TYLENOL-COD 2017-0 Yes 2{tbl} Take 2 [facility] [place] EINE #3 6-12 tablets by ity of 300-30 mg 00:00: mouth [place] tablet 00 every 6 Medical (six) Branch hours as needed for Pain (scale 4-6). DOXYCYCLINE 2017-0 Yes 100mg Take 1 Uni vers 100 mg 6-12 capsule by ity of capsule 00:00: mouth 2 [place] 00 (two) Medical times Branch daily. doxycycline 2017-0 Yes 100mg Take 1 Uni vers 100 mg 6-12 capsule by ity of capsule 00:00: mouth 2 [place] 00 (two) Medical times Branch daily. TYLENOL-COD 2017-0 Yes 2{tbl} Take 2 [facility] [place] EINE #3 6-12 tablets by ity of 300-30 mg 00:00: mouth [place] tablet 00 every 6 Medical (six) Branch hours as needed for Pain (scale 4-6). DOXYCYCLINE 2017-0 Yes 100mg Take 1 Uni vers 100 mg 6-12 capsule by ity of capsule 00:00: mouth 2 [place] 00 (two) Medical times Branch daily. doxycycline 2017-0 Yes 100mg Take 1 Uni vers 100 mg 6-12 capsule by ity of capsule 00:00: mouth 2 [place] 00 (two) Medical times Branch daily. TYLENOL-COD 2017-0 Yes 2{tbl} Take 2 [facility] [place] EINE #3 6-12 tablets by ity of 300-30 mg 00:00: mouth [place] tablet 00 every 6 Medical (six) Branch hours as needed for Pain (scale 4-6). DOXYCYCLINE 2017-0 Yes 100mg Take 1 Uni vers 100 mg 6-12 capsule by ity of capsule 00:00: mouth 2 [place] 00 (two) Medical times Branch daily. GABAPENTIN 2016-0 Yes TAKE 1 Unive rs 300 mg 4-26 CAPSULE BY ity of capsule 00:00: MOUTH 00 THREE Medical TIMES Branch DAILY GABAPENTIN 2016-0 Yes TAKE 1 Unive rs 300 mg 4-26 CAPSULE BY ity of capsule 00:00: MOUTH THREE Medical TIMES Branch DAILY GABAPENTIN 2016- Yes TAKE 1 Unive rs 300 mg 4-26 CAPSULE BY ity of capsule 00:00: MOUTH THREE Medical TIMES Branch DAILY GABAPENTIN 2016-0 Yes TAKE 1 Unive rs 300 mg 4-26 CAPSULE BY ity of capsule 00:00: MOUTH THREE Medical TIMES Branch DAILY GABAPENTIN 2016-0 Yes TAKE 1 Unive rs 300 mg 4-26 CAPSULE BY ity of capsule 00:00: MOUTH THREE Medical TIMES Branch DAILY GABAPENTIN 2016-0 Yes TAKE 1 Unive rs 300 mg 4-26 CAPSULE BY ity of capsule 00:00: MOUTH THREE Medical TIMES Branch DAILY GABAPENTIN 2016-0 Yes TAKE 1 Unive rs 300 mg 4-26 CAPSULE BY ity of capsule 00:00: MOUTH THREE Medical TIMES Branch DAILY GABAPENTIN 2016-0 Yes TAKE 1 Unive rs 300 mg 4-26 CAPSULE BY ity of capsule 00:00: MOUTH THREE Medical TIMES Branch DAILY GABAPENTIN 2017-0 Yes TAKE 1 Unive rs 300 mg 4-26 CAPSULE BY ity of capsule 00:00: MOUTH THREE Medical TIMES Branch DAILY GABAPENTIN 2016-0 Yes TAKE 1 Unive rs 300 mg 4-26 CAPSULE BY ity of capsule 00:00: MOUTH THREE Medical TIMES Branch DAILY GABAPENTIN 2016-0 Yes TAKE 1 Unive rs 300 mg 4-26 CAPSULE BY ity of capsule 00:00: MOUTH THREE Medical TIMES Branch DAILY GABAPENTIN 2016-0 Yes TAKE 1 Unive rs 300 mg 4-26 CAPSULE BY ity of capsule 00:00: MOUTH THREE Medical TIMES Branch DAILY GABAPENTIN 2016-0 Yes TAKE 1 Unive rs 300 mg 4-26 CAPSULE BY ity of capsule 00:00: MOUTH THREE Medical TIMES Branch DAILY GABAPENTIN 2017-0 Yes TAKE 1 Unive rs 300 mg 4-26 CAPSULE BY ity of capsule 00:00: MOUTH THREE Medical TIMES Branch DAILY GABAPENTIN 2017-0 Yes TAKE 1 Unive rs 300 mg 4-26 CAPSULE BY ity of capsule 00:00: MOUTH THREE Medical TIMES Branch DAILY GABAPENTIN 2017-0 Yes TAKE 1 Unive rs 300 mg 4-26 CAPSULE BY ity of capsule 00:00: MOUTH THREE Medical TIMES Branch DAILY methocarbam 2015-06 Yes 500mg Take 1 Uni vers ol 500 mg 2-30 tablet by ity o f tablet 00:00: mouth (four) Medical times Branch daily. traMADOL 50 2015-06 Yes 50mg Take 1 Univ ers mg tablet 2-30 tablet by ity o f 00:00: mouth 00 every 6 Medical (six) Branch hours as needed for Pain (scale 4-6). methocarbam 2015-06 Yes 500mg Take 1 Uni vers ol 500 mg 2-30 tablet by ity o f tablet 00:00: mouth (four) Medical times Branch daily. traMADOL 50 2015-06 Yes 50mg Take 1 Univ ers mg tablet 2-30 tablet by ity o f 00:00: mouth 00 every 6 Medical (six) Branch hours as needed for Pain (scale 4-6). methocarbam 2015-06 Yes 500mg Take 1 Uni vers ol 500 mg 2-30 tablet by ity o f tablet 00:00: mouth (four) Medical times Branch daily. traMADOL 50 2015-06 Yes 50mg Take 1 Univ ers mg tablet 2-30 tablet by ity o f 00:00: mouth [place] 00 every 6 Medical (six) Branch hours as needed for Pain (scale 4-6). methocarbam 2015-06 Yes 500mg Take 1 Uni vers ol 500 mg 2-30 tablet by ity o f tablet 00:00: mouth (four) Medical times Branch daily. traMADOL 50 2015-06 Yes 50mg Take 1 Univ ers mg tablet 2-30 tablet by ity o f 00:00: mouth [place] 00 every 6 Medical (six) Branch hours as needed for Pain (scale 4-6). methocarbam 2015-06 Yes 500mg Take 1 Uni vers ol 500 mg 2-30 tablet by ity o f tablet 00:00: mouth (four) Medical times Branch daily. traMADOL 50 2015-06 Yes 50mg Take 1 Univ ers mg tablet 2-30 tablet by ity o f 00:00: mouth [place] 00 every 6 Medical (six) Branch hours as needed for Pain (scale 4-6). methocarbam 2015-06 Yes 500mg Take 1 Uni vers ol 500 mg 2-30 tablet by ity o f tablet 00:00: mouth (four) Medical times Branch daily. methocarbam 2015-06 Yes 500mg Take 1 Uni vers ol 500 mg 2-30 tablet by ity o f tablet 00:00: mouth (four) Medical times Branch daily. traMADOL 50 2015-06 Yes 50mg Take 1 Univ ers mg tablet 2-30 tablet by ity o f 00:00: mouth [place] 00 every 6 Medical (six) Branch hours as needed for Pain (scale 4-6). traMADOL 50 2015-06 Yes 50mg Take 1 Univ ers mg tablet 2-30 tablet by ity o f 00:00: mouth [place] 00 every 6 Medical (six) Branch hours as needed for Pain (scale 4-6). methocarbam 2015-06 Yes 500mg Take 1 Uni vers ol 500 mg 2-30 tablet by ity o f tablet 00:00: mouth (four) Medical times Branch daily. traMADOL 50 2015-06 Yes 50mg Take 1 Univ ers mg tablet 2-30 tablet by ity o f 00:00: mouth [place] 00 every 6 Medical (six) Branch hours as needed for Pain (scale 4-6). methocarbam 2015-06 Yes 500mg Take 1 Uni vers ol 500 mg 2-30 tablet by ity o f tablet 00:00: mouth (four) Medical times Branch daily. traMADOL 50 2015-06 Yes 50mg Take 1 Univ ers mg tablet 2-30 tablet by ity o f 00:00: mouth [place] 00 every 6 Medical (six) Branch hours as needed for Pain (scale 4-6). methocarbam 2015-06 Yes 500mg Take 1 Uni vers ol 500 mg 2-30 tablet by ity o f tablet 00:00: mouth (four) Medical times Branch daily. traMADOL 50 2015-06 Yes 50mg Take 1 Univ ers mg tablet 2-30 tablet by ity o f 00:00: mouth [place] 00 every 6 Medical (six) Branch hours as needed for Pain (scale 4-6). methocarbam 2015-06 Yes 500mg Take 1 Uni vers ol 500 mg 2-30 tablet by ity o f tablet 00:00: mouth (four) Medical times Branch daily. traMADOL 50 2015-06 Yes 50mg Take 1 Univ ers mg tablet 2-30 tablet by ity o f 00:00: mouth [place] 00 every 6 Medical (six) Branch hours as needed for Pain (scale 4-6). methocarbam 2015-06 Yes 500mg Take 1 Uni vers ol 500 mg 2-30 tablet by ity o f tablet 00:00: mouth (four) Medical times Branch daily. traMADOL 50 2015-06 Yes 50mg Take 1 Univ ers mg tablet 2-30 tablet by ity o f 00:00: mouth [place] 00 every 6 Medical (six) Branch hours as needed for Pain (scale 4-6). methocarbam 2015-06 Yes 500mg Take 1 Uni vers ol 500 mg 2-30 tablet by ity o f tablet 00:00: mouth (four) Medical times Branch daily. traMADOL 50 2015-06 Yes 50mg Take 1 Univ ers mg tablet 2-30 tablet by ity o f 00:00: mouth [place] 00 every 6 Medical (six) Branch hours as needed for Pain (scale 4-6). methocarbam 2015-06 Yes 500mg Take 1 Uni vers ol 500 mg 2-30 tablet by ity o f tablet 00:00: mouth (four) Medical times Branch daily. traMADOL 50 2015-06 Yes 50mg Take 1 Univ ers mg tablet 2-30 tablet by ity o f 00:00: mouth [place] 00 every 6 Medical (six) Branch hours as needed for Pain (scale 4-6). methocarbam 2015-06 Yes 500mg Take 1 Uni vers ol 500 mg 2-30 tablet by ity o f tablet 00:00: mouth (four) Medical times Branch daily. traMADOL 50 2015-06 Yes 50mg Take 1 Univ ers mg tablet 2-30 tablet by ity o f 00:00: mouth [place] 00 every 6 Medical (six) Branch hours as needed for Pain (scale 4-6). methocarbam 2016-1 Yes 500mg Take 1 Uni vers ol 500 mg 2-30 tablet by ity o f tablet 00:00: mouth 4 00 (four) Medical times Branch daily. traMADOL 50 2015-06 Yes 50mg Take 1 Univ ers mg tablet 2-30 tablet by ity o f 00:00: mouth [place] 00 every 6 Medical (six) Branch hours as needed for Pain (scale 4-6). Vital Signs Vital Name Observation Time Observation Value Comments Source Systolic blood 2021-06-12 18:21:00 115 mm[Hg] Univer sity [facility] pressure [facility] Diastolic blood 2021-06-12 18:21:00 82 mm[Hg] Unive rsity [facility] Heart rate 2021-06-12 18:21:00 83 /min [facility] Body height 2021-06-12 18:21:00 175.3 cm [facility] Body weight 2021-06-12 18:21:00 76.204 kg [facility] [facility] BMI 2021-06-12 18:21:00 24.81 kg/m2 [facility] Oxygen saturation 2021-06-12 18:21:00 98 /[facility] in Arterial blood Medical Br anch by Pulse oximetry Procedures Procedure Date / Time Performed Performing Clinician [facility] e ASSIGNMENT OF BENEFITS 2021-02-15 14:39:21 Doctor Unassigned, No [facility] Encounters Start End Encounter Admission Attending Care Care Encounter Source Date/Time Date/Time Type Type Clinicians Facility Department ID 2021-06-12 2021-06-12 Outpatient R TACO [facility] [id number] Univers 12:20:00 12:29:12 ROBERT moon [facility] 2021-06-12 2021-06-12 Urgent Robert España [facility] 1.2.840.114 [id number] Univers 12:20:00 12:29:12 Care Unknown, Attending HEALTH 350.1.13.10 red [facility] 4.2.7.2.686 Roshan as SIXTO?BLEA [phone] Ia dical [address] MEDICAL OFFICE BUILDING 2021-06-12 2021-06-12 Outpatient [facility] [id number] Univers 12:20:00 12:20:00 [id number] ity [facility] 2021-06-08 2021-06-08 Outpatient R MICHELLE [facility] [id number] Univers 11:45:00 12:43:11 WHIT moon o f [facility] 2021-06-08 2021-06-08 Laboratory Only, Ang Db Test [facility] 1.2.8 40.114 [id number] Univers 11:45:00 12:00:00 Only Whit Isaac [facility] 350.1.13.10 ity of [place] 4.2.7.2.686 Roshan as SIXTO?BLEA [phone] [address] MEDICAL OFFICE [facility] 2021-06-08 2021-06-08 Outpatient R [facility] [id number] Univers 11:45:00 11:45:00 [id number] ity [facility] 2021-06-06 2021-06-06 Letter LESLEE Everett [id number] Univers 00:00:00 00:00:00 (Out) Niko WESTON 350.1.13.10 it [facility] 4.2.7.2.686 Roshan as [phone] [address] 2021-06-05 2021-06-05 Laboratory Only, Ang Db Test [facility] 1.2.8 40.114 [id number] Univers 10:00:00 10:15:00 Only Jonathan Shefali HEALTH 350.1.13.10 ity of [place] [id number] Roshan as SIXTO?BLEA [phone] [address] MEDICAL OFFICE [facility] 2021-06-05 2021-06-05 [facility] [id number] Univers 10:00:00 10:09:11 SHEFALI ity [facility] 2021-06-05 2021-06-05 Outpatient R [facility] [id number] Univers 10:00:00 10:00:00 [id number] ity [facility] 2021-05-28 2021-05-28 Urgent Only, Ang Db Test [facility] 1.2.840. 114 [id number] Univers 10:54:23 11:14:23 Care Jonathan Shefali HEALTH 350.1.13.10 ity of [place] 4.2.7.2.686 Roshan as SIXTO?BLEA [id number] [address] MEDICAL OFFICE [facility] 2021-05-28 2021-05-28 Outpatient R JONATHAN [facility] [id number] Univers 11:00:00 11:08:42 SHEFALI ity [facility] 2021-05-28 2021-05-28 Outpatient R [facility] [id number] Univers 11:00:00 11:00:00 [id number] ity [facility] 2021-05-28 2021-05-28 Telephone LESLEE Hawk [id number] Univers 00:00:00 00:00:00 Ping PALMA 350.1.13.10 ity of [facility] 4.2.7.2.686 Roshan as [id number] [address] 2021-02-23 2021-02-23 Telephone LESLEE Motta [id number] Univers 00:00:00 00:00:00 Hortensia PALMA 350.1.13.10 i ty of [facility] 4.2.7.2.686 Roshan as [id number] [address] 2021-02-22 2021-02-22 Laboratory Only, Ang Db Test [facility] 1.2.8 40.114 [id number] Univers 11:35:09 11:50:09 Only Rachael Soto [facility] 350.1.13.10 ity of [place] 4.2.7.2.686 Roshan as Sixto?Blea [phone] [address] Medical Office [facility] 2021-02-22 2021-02-22 Outpatient [facility] [id number] Univers 11:45:00 11:45:00 [id number] ity [facility] 2021-02-22 2021-02-22 Outpatient R BRITTANY [facility] [id number] Univers 11:45:00 11:45:00 RACHAEL moon o f [facility] 2021-02-16 2021-02-16 Letter LESLEE Moe 1.2.840.114 [id number] Univers 00:00:00 00:00:00 (Out) Dorothea LABOYY 350.1.13.10 it y of [facility] 4.2.7.2.686 Roshan as [phone] [address] 2021-02-15 2021-02-15 Laboratory Only, Ang Db Test [facility] 1.2.8 40.114 [id number] Univers 09:40:02 09:55:02 Only Unknown, Attending Health 350.1.13.10 ity of [place] 4.2.7.2.686 Roshan as Sixto?Blea [phone] [address] Medical Office Building 2021-02-15 2021-02-15 Outpatient R [facility] [id number] Univers 09:45:00 09:45:00 [id number] ity of [facility] 2021-02-15 2021-02-15 Outpatient R UNKNOWN, [facility] [id number] Univers 09:45:00 09:45:00 ATTENDING ity [facility] 2021-02-15 2021-02-15 Orders Doctor CAMILO 1.2.840.114 [id number] Univers 00:00:00 00:00:00 Only Unassigned, MINERVA 350.1.13.10 ity of [place] [facility] 4.2.7.2.686 Roshan as [phone] [address] 2020-01-08 2020-01-08 Telephone LESLEE Jackson [id number] Univers 00:00:00 00:00:00 Shefali MINERVA 350.1.13.10 it y of [facility] 4.2.7.2.686 Roshan as [id number] [address] 2020-01-07 2020-01-07 Outpatient R [facility] [id number] Univers 17:40:00 17:40:00 ity of [facility] 2020-01-07 2020-01-07 Outpatient R [facility] [id number] Univers 17:40:00 17:40:00 ity of [facility] 2020-01-07 2020-01-07 Laboratory Lab, Adc Fam Pob I [facility] 1.2. 840.114 [id number] Univers 15:50:21 16:10:21 Only AneneMetaresolver 350.1.13.10 ity of [place] 4.2.7.2.686 Roshan as Profmarvelio [phone] Ia judith warren [address] One Results This patient has no known results.
[2021-11-21] MEDS ORDERED: MORPHINE 4 MG/ML SYR ONE (17:35)
[2021-11-21] MEDS ORDERED: TETANUS & DIPHTHERIA TOX,ADULT 0.5 ML VIAL ONE (17:36)
[2021-11-21] MEDS ORDERED: NA CHLORIDE 0.9% 1,000 ML ONE (17:36)
[2021-11-21] MEDS ORDERED: ONDANSETRON 4 MG/2 ML VIAL ONE (17:36)
[2021-11-21] MEDS ORDERED: KETOROLAC 30 MG/ML INJ ONE (17:36)
--- NOTE | 2021-11-21 17:44 | RAD REPORT ---
EXAM DESCRIPTION: RAD - Knee Right 3 View - 11/21/2021 5:32 pm CLINICAL HISTORY: Right knee pain status post injury FINDINGS: No fracture or dislocation is seen.
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
--- NOTE | 2021-11-21 18:12 | RAD REPORT ---
EXAM DESCRIPTION: RAD - Femur Right - 11/21/2021 5:32 pm CLINICAL HISTORY: Leg pain FINDINGS: No fracture is seen. 17 millimeter area of sclerosis within the right superior pubic ramus unchanged from 2013 is benign
[2021-11-21 18:17] LABS: Absolute Lymphocytes (CBC) 1.3 K/uL (0.7-4.9); Hematocrit 40.8 % (39.6-49.0); Lymphocytes % 14.8 % (15.3-44.8); MPV 8.8 fL (7.6-11.3); RBC Red Blood Cell Count 4.69 M/uL (4.33-5.43)
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
[2021-11-21 18:44] LABS: Albumin 3.4 g/dL (3.4-5.0); Bilirubin Direct 0.1 mg/dL (0-0.2); Bilirubin Total 0.5 mg/dL (0.2-1.0); Potassium 3.5 mmol/L (3.5-5.1); Protein, Total 6.2 g/dL (6.4-8.2)
[2021-11-21 19:21] VITALS: TEMP 98.7
[2021-11-21 19:23] VITALS: BP 109/82; O2SAT 98
== END 2021-11-21 19:00 | disposition home or self-care (01) ==
LOC: ER 16:49
DX: S50.811A Abrasion of right forearm, initial encounter (principal); M23.8X1 Other internal derangements of right knee; V29.40XA Motorcycle driver injured in collision with unspecified motor vehicles in traffic accident, initial encounter; Z23 Encounter for immunization; Z88.8 Allergy status to other drugs, medicaments and biological substances; F17.210 Nicotine dependence, cigarettes, uncomplicated
CPT/HCPCS: 96361; 85025; 80048; 36415; 86900; 86850; 82565; 86901; 80076; 70450; 72125; 71260; 74177; 73562; 73552; 90471; 90714; 96375; 96374; 99284; J7030; J2405